=== PATIENT | female | born 1945 | race Caucasian/White ===

== ENCOUNTER 2024-08-05 10:48 | Day surgery (SDC) | payer MEDICARE ==
[~2024-08-05] VITALS: Ht 157.5 cm; Wt 86.6 kg
[~2024-08-05 10:48] MED LIST: B-12100010 PO; ECOT81TA5 PO; EZET10TA21 PO; LEVO88TA3 PO; LR 1,000 ML IV SCH; MIDAZOLAM INJ 2MG/2ML VIAL As Ordered ONE; PANT40TA29 PO; THERTAB52 PO; VITA100093 PO; fentaNYL 100 MCG/2 ML INJECTION As Ordered ONE
[2024-08-05] MEDS: PHENYLEPHRINE 2.5% OPHTH SOL 2ML OD SCH (12:12)
[2024-08-05] MEDS: CYCLOPENTOLATE 1% OPHTH SOLN 2ML BTL OD SCH (12:12)
[2024-08-05] MEDS: TETRACAINE 0.5% OPHTH SOLN 4ML OD SCH (12:12)
[2024-08-05] MEDS: FLURBIPROFEN 0.03% OPHTH SOLN 2.5 ML OD SCH (12:12)
[2024-08-05] MEDS: CEFUROXIME 1MG/0.1ML INTRACAMERAL INJ As Ordered ONE (13:19)
[2024-08-05] MEDS: LIDOCAINE 1% SDV 5ML VIAL As Ordered ONE (13:19)
[2024-08-05] MEDS ORDERED: LABETALOL 100MG/20ML VIAL As Ordered ONE (13:19)
[2024-08-05 13:39] VITALS: BP 136/81; TEMP 96.9; O2SAT 96
== END 2024-08-05 14:01 | disposition home or self-care (01) ==
LOC: M SDC 10:48
PROVIDERS: ATTEND Ophthalmology
DX: H25.11 Age-related nuclear cataract, right eye (principal); E89.0 Postprocedural hypothyroidism; E78.00 Pure hypercholesterolemia, unspecified; K21.9 Gastro-esophageal reflux disease without esophagitis; Z79.82 Long term (current) use of aspirin; Z79.890 Hormone replacement therapy; Z79.899 Other long term (current) drug therapy; Z90.710 Acquired absence of both cervix and uterus; Z92.3 Personal history of irradiation; Z88.5 Allergy status to narcotic agent; Z90.49 Acquired absence of other specified parts of digestive tract
CPT/HCPCS: 66984; J0697; J1920; J2250; J3010; V2632

== ENCOUNTER 2024-10-28 11:28 | Day surgery (SDC) | payer MEDICARE ==
[~2024-10-28] VITALS: Ht 157.5 cm; Wt 87.3 kg
[~2024-10-28 11:28] MED LIST changes: +CEFUROXIME 1 MG/0.1 ML INTRACAMERAL INJ As Ordered ONE; +CYCLOPENTOLATE 1% OPHTH SOLN 2 ML BTL OS SCH; +FLURBIPROFEN 0.03% OPHTH SOLN 2.5 ML OS SCH; +LIDOCAINE 1% SDV 5 ML VIAL As Ordered ONE; -MIDAZOLAM INJ 2MG/2ML VIAL As Ordered ONE; +PHENYLEPHRINE 2.5% OPHTH SOL 2ML OS SCH; +TETRACAINE 0.5% OPHTH SOLN 4ML OS SCH; -fentaNYL 100 MCG/2 ML INJECTION As Ordered ONE
[2024-10-28] MEDS: TETRACAINE 0.5% OPHTH SOLN 4ML OS SCH (13:05)
[2024-10-28] MEDS: FLURBIPROFEN 0.03% OPHTH SOLN 2.5 ML OS SCH (13:05)
[2024-10-28] MEDS: PHENYLEPHRINE 2.5% OPHTH SOL 2ML OS SCH (13:05)
[2024-10-28] MEDS: CYCLOPENTOLATE 1% OPHTH SOLN 2 ML BTL OS SCH (13:05)
[2024-10-28 14:43] VITALS: BP 162/81; TEMP 97.2; O2SAT 100
== END 2024-10-28 15:01 | disposition home or self-care (01) ==
LOC: M SDC 11:28
PROVIDERS: ATTEND Ophthalmology
DX: H25.12 Age-related nuclear cataract, left eye (principal); E89.0 Postprocedural hypothyroidism; Z79.890 Hormone replacement therapy; Z79.899 Other long term (current) drug therapy; Z79.82 Long term (current) use of aspirin; Z88.5 Allergy status to narcotic agent; K21.9 Gastro-esophageal reflux disease without esophagitis; Z98.41 Cataract extraction status, right eye; Z90.49 Acquired absence of other specified parts of digestive tract
CPT/HCPCS: 66984; J0697; J3010; V2632